=== PATIENT | male | born 1950 | race Two or more races ===

== ENCOUNTER 2022-09-05 14:06 | Emergency (ER) | payer OTHER ==
[~2022-09-05] VITALS: Ht 175.3 cm; Wt 89.8 kg
[2022-09-05] MEDS ORDERED: FENOFIBRATE50 MG PO (14:45)
[2022-09-05] MEDS ORDERED: GRALISE600 MG PO (14:45)
[2022-09-05] MEDS ORDERED: AMLODIPINE-OLM1 EACH PO (14:46)
[2022-09-05] MEDS ORDERED: HYDROCHLOROTHIA25 MG PO (14:46)
[2022-09-05] MEDS ORDERED: AVAPRO300 MG PO (14:47)
[2022-09-05] MEDS ORDERED: FOLIC ACID20 MG PO (14:47)
== END 2022-09-05 17:54 | disposition left against medical advice (07) ==
LOC: ER 14:06
DX: Z53.21 Procedure and treatment not carried out due to patient leaving prior to being seen by health care provider (principal)